=== PATIENT | female | born 1985 | race Caucasian/White ===

== ENCOUNTER 2025-06-08 16:11 | Emergency (ER) | payer OTHER, SELFPAY ==
[2025-06-08 16:13] VITALS: BP 149/90; PULSE 92; RESP 16; TEMP 37; O2SAT 99; BMI 46.9
--- NOTE | 2025-06-08 16:23 | CT_ITS ---
PROCEDURE: CT/Brain/Head without Contrast
--- NOTE | 2025-06-08 16:24 | EX.ED.GENINJ ---
HPI History of Present Illness Chief Complaint: Head Injury Detail of Chief Complaint: Closed head injury, at work at 11:30 AM Informant: patient Onset/Context/Timing Onset: Today Mechanism/Context: Blunt Injury Location of pain/injuries: - (Vertex of head) Quality of Pain: Dull and Aching Location: Headache, autophobia, nausea, balance off Current Severity: Mild Maximum Severity: Moderate Worsened by: Nothing Relieved by: Nothing Associated Symptoms Associated Symptoms: Negative for Parasthesias, Weakness, Loss of function, Inability to ambulate, Loss of consciousness or Amnesia Narrative Narrative: Patient is a 39-year-old woman. She is on control medication and diet medication. She was at work. Assigned at a [employer] out [employer] [place] fell onto her head. She has had a headache with nausea, photophobia and problems with balance since injury. This occurred at 11:30 AM. She is not on an anticoagulant or antithrombotic. She denies ringing or ears decreased hearing. No trouble with speech or swallowing. She denies cardiac respiratory symptoms. The only GI symptom she has is nausea. She denies history of bruising easily. Prior similar symptoms: No Recent Illness/Hospitalization: No PFSH PFSH Medical History Non-smoker Home Medications ?Medication ?Instructions ?Recorded ?Last Taken ?Type cephalexin 500 mg capsule 500 mg PO Q6 ##40 06/21/13 Unknown Rx norgestimate 0.25 mg-ethinyl 1 ea PO DAILY 06/21/13 Unknown History estradiol 0.035 mg tablet (Sprintec (28)) sulfamethoxazole 800 2 tab PO BID ##40 06/21/13 Unknown Rx mg-trimethoprim 160 mg tablet Allergy/AdvReac Type Severity Reaction Status Date / Time Penicillins Allergy Unknown Verified 06/08/25 16:16 tramadol AdvReac Vomiting Verified 06/08/25 16:16 Surgical History no surgical history no surgical history Social History Smoking Status: Never smoker ROS ROS ED Constitutional Constitutional ED: Denies chills, fever(s), subjective or sweats Eyes Eyes: Reports other Details: Photophobia ; Denies blurry vision or change in vision ENT ENT ED: Denies ear pain, rhinorrhea or sore throat Cardiovascular Cardiovascular: Denies chest pain, palpitations or paroxysmal nocturnal dyspnea Respiratory/Chest Respiratory/Chest: Denies cough, dyspnea, dyspnea on exertion or paroxysmal nocturnal dyspnea Gastrointestinal Gastrointestinal: Reports nausea; Denies abdominal pain, constipation, diarrhea, melena or vomiting Genitourinary Genitourinary ED: Denies dysuria, hematuria or urinary frequency Musculoskeletal Musculoskeletal: Denies neck pain Integumentary Denies rash Neurologic Neurologic: Reports headache(s); Denies paresthesias or weakness Psychiatric Psychiatric: Denies anxiety or depression Hematologic/Lymphatic Hematologic/Lymphatic: Denies easy bleeding or easy bruising EXAM Physical Exam Const Vital Signs: 06/08/25 16:13 06/08/25 16:27 Temperature 98.6 F Temperature Source Oral Pulse Rate 92 Respiratory Rate 16 Respiratory Effort Normal Blood Pressure 149/90 H Blood Pressure Mean 109 Pulse Ox 99 Oxygen Delivery Method Room Air Room Air Positive well nourished and well developed Constitutional Narrative: Vital signs are mycophenolate blood pressure 140/90. BMI is 46.9. General Appearance ED: well developed and NAD HEENT Reports TM's clear Nose: Negative for septum abnormal Tympanic Membrane ED: Yes TM's clear Eyes PERRL and EOMs intact bilaterally General Eye ED: Yes other Other Details: There is no subconjunctival hemorrhage. There is no nystagmus. Patient does have photophobia. Neck full ROM Resp normal respiratory effort Cardio regular rhythm Rate: regular rate GI normal to inspection, nondistended, normoactive bowel sounds and non-tender Palpation: soft Extremity normal to inspection and full ROM Neuro oriented x3, CN's II-XII intact bilaterally, moves all extremities, no focal motor deficits, no sensory deficits noted and gait normal Helix Coma Scale: document GCS findings Spontaneous Obeys Commands Oriented 15 Sensorium / Orientation: alert Plantar Reflex: Downgoing: bilateral (There is no clonus.) Psych mental status grossly normal and thought process normal Skin no rashes or lesions noted, no wounds, skin turgor normal and no jaundice MDM MDM MDM Narrative Medical decision making narrative: Patient presents with closed head injury. Need to evaluate for intracranial bleed versus concussion. Since patient had symptoms that have persisted for [address] of the head. Radiography Diagnostic Testing: Clinical Impression(s) from Imaging Studies Brain CT 06/08/25 16:23 IMPRESSION: No acute intracranial abnormality. Reading Location: [facility] Treatment and Re-Evaluation Narrative: Patient was informed of CAT scan results and work restrictions and need for blood pressure reevaluation in a week Discharge Plan Triage Chief Complaint: Head Injury ED Provider: Pola Urena Dx/Rx/DC Orders Clinical Impression: Concussion without loss of consciousness, Blunt head trauma, Elevated blood pressure reading without diagnosis of hypertension Instructions: ED Concussion, ED Hypertension, To Be Confirmed Prescriptions: No Action norgestimate-ethinyl estradiol [Sprintec (28)] 1 EACH tablet 1 ea PO DAILY sulfamethoxazole-trimethoprim 1 TABLET tablet 2 tab PO BID Qty: 40 0RF cephalexin 500 MG capsule 500 mg PO Q6 Qty: 40 0RF Stand Alone Forms: Work Status Form Primary Care Provider: Care Physician,No Primary Referrals: Corporate,Care [Group of Physicians, Medical] - 3-5 Days Care Physician,No Primary [Primary Care Provider, Medical] Activity Restrictions/Additional Instructions: Keep appointment with your new primary care doctor scheduled for June 14. Have him or her check her blood pressure Print Language: [place] Citizen Disposition Disposition: Home, Self Care
[2025-06-08 18:50] VITALS: BP 132/74; PULSE 82; RESP 17; TEMP 36.8; O2SAT 94
== END 2025-06-08 18:51 | disposition home or self-care (01) ==
PROVIDERS: Emergency Provider Emergency Medicine; Visit Provider Emergency Medicine
DX: S06.0X0A Concussion without loss of consciousness, initial encounter (principal); W20.8XXA Other cause of strike by thrown, projected or falling object, initial encounter; Y99.0 Civilian activity done for income or pay; R03.0 Elevated blood-pressure reading, without diagnosis of hypertension
CPT/HCPCS: 70450; 99282; A4216